=== PATIENT | male | born 1955 | race Caucasian/White ===

== ENCOUNTER 2018-06-08 15:19 | Observation (INO) ==
--- NOTE | 2018-06-08 16:51 | ED ---
HPI General Chief complaint: Fall Stated complaint: fall Time Seen by Provider: 06/08/18 19:34 Source: patient Mode of arrival: ambulatory Limitations: no limitations History of Present Illness HPI narrative: 63yo M with PMH of PVD, HTN, HLD, TIA/CVA, CAD s/p stent presents to the ED with c/o persistent headache and generalized weakness after a fall a week ago. Said he fell backwards, hit his head and was in [facility] for 4-5 days. Said they did many tests but he does not know the results and would like a second opinion so came to this hospital. Denies any fever, chest pain, visual changes, sob, n/v, focal weakness or numbness. Pt is tender on abdominal exam and said he has been having pain since he was [age] years old. Said he saw Dr. Alcazar 3 days ago and said he is suppose to wear a monitor to monitor electrical rhythm in his heart. Said he fell 2 more times and passed out. Pt is a poor historian. Related Data Home Medications Medication Instructions Recorded Confirmed Plavix 75 mg PO DAILY 06/08/18 06/09/18 aspirin 81 mg PO DAILY 06/08/18 06/09/18 lisinopril 20 mg PO DAILY 06/08/18 06/09/18 lovastatin 20 mg PO DAILY 06/08/18 06/09/18 meclizine 25 mg PO DAILY 06/08/18 06/09/18 oxycodone 10 mg PO QID PRN 06/08/18 06/09/18 diazepam 10 mg PO BID PRN 06/09/18 06/09/18 furosemide 20 mg PO DAILY 06/09/18 06/09/18 pantoprazole 40 mg PO DAILY 06/09/18 06/09/18 potassium chloride 20 meq PO DAILY 06/09/18 06/09/18 Allergies Allergy/AdvReac Type Severity Reaction Status Date / Time penicillin G Allergy Severe Hives Unverified 06/08/18 15:32 Review of Systems ROS: all other systems reviewed are negative [facility] Family History Family History Mother History of heart attack Father History of heart attack Brother History of heart attack Sister History of heart attack Social History Social History Substance History: No History of Abuse Second Hand Smoke Exposure: No Smoking Status: Current every day smoker Tobacco Type: Cigarettes Packs Per Day: 1 Cigarettes Per Day: 20.0 Years Smoked: 50 Pack-Years: 50.00 How Often Do You Have a Drink Containing Alcohol: Never Recent Travel in [place] within the Last 8 Weeks: No Recent Out of Country Travel within the Last 8 Weeks: No Exam Narrative Exam Narrative: GENERAL: 63yo M not in distress. SKIN: Focused skin assessment warm/dry. HEAD: Atraumatic. Normocephalic. EYES: Pupils equal and round. EOMI. ENT: No nasal bleeding or discharge. Mucous membranes pink and moist. NECK: No midline cervical spine ttp. CARDIOVASCULAR: Regular rate and rhythm. No murmur appreciated. RESPIRATORY: No accessory muscle use. Clear to auscultation. Breath sounds equal bilaterally. GASTROINTESTINAL: Abdomen soft, +TTP epigastric and RUQ. No rebound tenderness or guarding. BACK: +TTP sacrum. No ttp thoracic or lumbar. MUSCULOSKELETAL: No obvious deformities. No clubbing. No cyanosis. No edema. NEUROLOGICAL: Awake and alert. No obvious cranial nerve deficits. Motor grossly within normal limits in all extremities. Sensation intact. Normal speech. PSYCHIATRIC: Appropriate mood and affect; insight and judgment normal. Course Consultations Consultation #1: Spoke with [facility] nurse practitioner covering for Dr. Chopra. She will admit patient for observation of recurrent syncopal episodes and interrogation of implanted loop recorder. Time: 19:53 Initial Documented Vital Signs Temperature 98 F 06/08/18 15:32 Pulse Rate 70 06/08/18 15:32 Respiratory Rate 16 06/08/18 15:32 Blood Pressure 111/61 06/08/18 15:32 Pulse Oximetry 98 06/08/18 15:32 Last Documented Vital Signs Temperature 97.6 F 06/10/18 16:00 Pulse Rate 63 06/10/18 16:00 Respiratory Rate 18 06/10/18 16:00 Blood Pressure 169/87 H 06/10/18 16:00 Pulse Oximetry 95 06/10/18 16:00 Sign Out Sign Out Data: Patient Sign Out occurred on 06/08/18 at 19:34. Patient's care was discussed, and care was transferred from Samantha Santillan DO to Cullen Morin MD. Sign Out Comment: Sign out to next team since pt is still pending interrogation of loop recorder by [employer] and waiting for hospitalist to call back for observaton admission. Last updated by Samantha Santillan DO at 06/08/18 19:33 Medical Decision Making MDM Narrative Medical decision making narrative: 63yo M here stating he just has headache and sacral pain after falling a week ago. Said he was admitted in [facility] so will obtain records. Pt has not been to [place] for [address] Alcazar for further information as well since he saw him 3 days ago. I discussed with Dr. Ortiz and he said his gang investigator is Dr. Washington. It appears that pt was in [facility] for syncope work up in April and has a loop recorder. Said for some reason, they are not getting information of it and if concern, then we should interrogate it. Labs reviewed, no leukocytosis. H/H normal. BMP unremarkable. Lipase normal. UA showed rare bacteria. Culture not indicated. CT brain showed no acute hemorrhage or mass effect. CT a/p showed mild diverticulosis with no definite inflammatory change. Pt said he fell 2 more times this week and black out. He is a terrible historian. I have not gotten records from [facility] yet. He said he keeps falling and then blacking out. Sometimes his legs get weak. He lives by himself. Will admit for syncope work up and cardiology consult as well as PT evaluation. Pt may not be a safe discharge. Medical Screen Exam Complete: Yes Emergency Medical Condition: Yes Differential Diagnosis Differential Diagnosis: Electrolyte abnormality vs. contusion vs. arrhythmia Lab Data Result diagrams: 06/09/18 04:35 06/09/18 04:35 Lab Results 06/08/18 06/08/18 06/08/18 Range/Units 17:22 17:22 18:40 CBC w Diff Auto diff final WBC 6.2 (4.0-11.0) th/mm3 RBC 4.06 L (4.50-5.90) mil/mm3 Hgb 13.4 (13.0-17.0) gm/dL Hct 39.7 (39.0-51.0) % MCV 97.8 (80.0-100.0) fL MCH 33.0 (27.0-34.0) pg MCHC 33.7 (32.0-36.0) % RDW 13.6 (11.6-17.2) % Plt Count 284 (150-450) th/mm3 MPV 8.4 (7.0-11.0) fL Neut % (Auto) 59.7 (16.0-70.0) % Lymph % (Auto) 30.8 (9.0-44.0) % [place] % (Auto) 7.8 (0.0-8.0) % Eos % (Auto) 1.3 (0.0-4.0) % Baso % (Auto) 0.4 (0.0-2.0) % Neut # (Auto) 3.7 (1.8-7.7) th/mm3 Lymph # (Auto) 1.9 (1.0-4.8) th/mm3 [place] # (Auto) 0.5 (0.0-0.9) th/mm3 Eos # (Auto) 0.1 (0.0-0.4) th/mm3 Baso # (Auto) 0.0 (0.0-0.2) th/mm3 WBC Differential . Differential Comment . Sodium 139 (136-145) meq/L Potassium 3.9 (3.5-5.1) meq/L Chloride 106 (98-107) meq/L Carbon Dioxide 27.4 (21.0-32.0) meq/L Anion Gap 6 (5-15) meq/L BUN 6 L (7-18) mg/dL Creatinine 0.80 (0.60-1.30) mg/dL Estimated GFR Greater than 89 (>89) mL/min Random Glucose 93 (74-106) mg/dL Calcium 8.8 (8.5-10.1) mg/dL Magnesium 1.7 (1.5-2.5) mg/dL Total Bilirubin 0.3 (0.2-1.0) mg/dL AST 20 (15-37) U/L ALT 18 (12-78) U/L Alkaline Phosphatase 73 (45-117) U/L Total Protein 7.4 (6.4-8.2) g/dL Albumin 3.5 (3.4-5.0) g/dL Lipase 93 (73-393) U/L Urine Color Yellow (Yellw/Straw) Urine Clarity Clear (Clear) Urine pH 5.5 (5.0-8.5) Ur Specific [place] Less/equal 1.005 (1.002-1.035) Urine Protein Negative (Neg-Trace) mg/dL Urine Glucose (UA) Negative (Negative) mg/dL Urine Ketones Negative (Negative) mg/dL Urine Occult Blood Small H (Negative) Urine Nitrate Negative (Negative) Urine Bilirubin Negative (Negative) Urine Urobilinogen 0.2 (Less than 2) mg/dL Ur Leukocyte Esterase Negative (Negative) Urine RBC 0-3 (0-3) /hpf Urine Bacteria Rare H (None) /hpf Micro UA Comment Culture not ind Ur Microscopic Review Microscopic reviewed Urine Culture Comments Culture not ind Urine Opiates Screen (Neg) Ur Barbiturates Screen (Neg) Ur Amphetamines Screen (Neg) U Benzodiazepines Scrn (Neg) Urine Cocaine Screen (Neg) U Cannabinoids Screen (Neg) 06/09/18 06/09/18 06/09/18 Range/Units 04:35 04:35 08:50 CBC w Diff Auto diff final WBC 6.5 (4.0-11.0) th/mm3 RBC 3.85 L (4.50-5.90) mil/mm3 Hgb 13.3 (13.0-17.0) gm/dL Hct 38.7 L (39.0-51.0) % MCV 100.5 H (80.0-100.0) fL MCH 34.5 H (27.0-34.0) pg MCHC 34.3 (32.0-36.0) % RDW 13.2 (11.6-17.2) % Plt Count 246 (150-450) th/mm3 MPV 8.8 (7.0-11.0) fL Neut % (Auto) 42.1 (16.0-70.0) % Lymph % (Auto) 43.7 (9.0-44.0) % [place] % (Auto) 8.2 H (0.0-8.0) % Eos % (Auto) 3.9 (0.0-4.0) % Baso % (Auto) 2.1 H (0.0-2.0) % Neut # (Auto) 2.7 (1.8-7.7) th/mm3 Lymph # (Auto) 2.9 (1.0-4.8) th/mm3 [place] # (Auto) 0.5 (0.0-0.9) th/mm3 Eos # (Auto) 0.3 (0.0-0.4) th/mm3 Baso # (Auto) 0.1 (0.0-0.2) th/mm3 WBC Differential . Differential Comment . Sodium 142 (136-145) meq/L Potassium 3.7 (3.5-5.1) meq/L Chloride 107 (98-107) meq/L Carbon Dioxide 26.1 (21.0-32.0) meq/L Anion Gap 9 (5-15) meq/L BUN 7 (7-18) mg/dL Creatinine 0.69 (0.60-1.30) mg/dL Estimated GFR Greater than 89 (>89) mL/min Random Glucose 86 (74-106) mg/dL Calcium 8.7 (8.5-10.1) mg/dL Magnesium (1.5-2.5) mg/dL Total Bilirubin (0.2-1.0) mg/dL AST (15-37) U/L ALT (12-78) U/L Alkaline Phosphatase (45-117) U/L Total Protein (6.4-8.2) g/dL Albumin (3.4-5.0) g/dL Lipase (73-393) U/L Urine Color (Yellw/Straw) Urine Clarity (Clear) Urine pH (5.0-8.5) Ur Specific [place] (1.002-1.035) Urine Protein (Neg-Trace) mg/dL Urine Glucose (UA) (Negative) mg/dL Urine Ketones (Negative) mg/dL Urine Occult Blood (Negative) Urine Nitrate (Negative) Urine Bilirubin (Negative) Urine Urobilinogen (Less than 2) mg/dL Ur Leukocyte Esterase (Negative) Urine RBC (0-3) /hpf Urine Bacteria (None) /hpf Micro UA Comment Ur Microscopic Review Urine Culture Comments Urine Opiates Screen Pos H (Neg) Ur Barbiturates Screen Neg (Neg) Ur Amphetamines Screen Neg (Neg) U Benzodiazepines Scrn Pos H (Neg) Urine Cocaine Screen Neg (Neg) U Cannabinoids Screen Neg (Neg) Imaging Data Radiologist's impression: Abdomen/Pelvis CT 06/08/18 16:41 CONCLUSION: 1. Mild diverticulosis with no definite inflammatory change. 2. Mild hepatic steatosis. 3. Unremarkable gallbladder. 4. No visualized etiology to explain the patient's pain. Head CT 06/08/18 16:41 CONCLUSION: 1. No acute hemorrhage or mass effect. 2. Atrophy and extensive chronic small vessel ischemic change. 3. Old lacunar infarct in the left caudate nucleus. . ECG Data EKG Prior to Arrival: No Attestation: I personally reviewed and interpreted this ECG as follows: Interpretation: NSR 60bpm. MN interval 179ms. Normal axis. PVC. No ST segment elevation or depression. Discharge Plan Discharge Disposition Patient Disposition: 30 Still Patient Discharge Condition Condition: Stable Discharge Order Discharge Orders: AMA Discharge (Routine); Ordered 06/10/18 Ordered By: Monico Kapadia Discharge Details Diagnosis: Syncope Physicians Team ED Provider: Cullen Morin Primary Care Provider: Primary Care Shima,Billie Attending Provider: Monico Kapadia Other Providers: Didier Alcazar Status ED Status: Left Department Discharge Information Discharge Date/Time: 06/08/18 21:20
[2018-06-08 17:40] LABS: Chloride 106 meq/L (98-107); Potassium 3.9 meq/L (3.5-5.1); Sodium 139 meq/L (136-145)
[2018-06-08 17:43] LABS: Calcium 8.8 mg/dL (8.5-10.1)
[2018-06-08 17:44] LABS: Albumin 3.5 g/dL (3.4-5.0); Anion Gap 6 meq/L (5-15); Blood Urea Nitrogen 6 mg/dL (7-18); Carbon Dioxide 27.4 meq/L (21.0-32.0); Glucose,Random 93 mg/dL (74-106); Lipase 93 U/L (73-393); Magnesium 1.7 mg/dL (1.5-2.5)
[2018-06-08 17:45] LABS: Baso % (Auto) 0.4 % (0.0-2.0); Eos # (Auto) 0.1 th/mm3 (0.0-0.4); Eos % (Auto) 1.3 % (0.0-4.0); Hematocrit 39.7 % (39.0-51.0); Hemoglobin 13.4 gm/dL (13.0-17.0); Lymph # (Auto) 1.9 th/mm3 (1.0-4.8); Lymph % (Auto) 30.8 % (9.0-44.0); Mean Corpuscular HGB Conc 33.7 % (32.0-36.0); Mean Corpuscular Volume 97.8 fL (80.0-100.0); Mean Platelet Volume 8.4 fL (7.0-11.0); Mono # (Auto) 0.5 th/mm3 (0.0-0.9); Mono % (Auto) 7.8 % (0.0-8.0); Neut # (Auto) 3.7 th/mm3 (1.8-7.7); Neut % (Auto) 59.7 % (16.0-70.0); Platelet Count 284 th/mm3 (150-450); Red Blood Count 4.06 mil/mm3 (4.50-5.90); Red Cell Distribution Width 13.6 % (11.6-17.2); White Blood Count 6.2 th/mm3 (4.0-11.0)
[2018-06-08 17:47] LABS: Alanine Aminotransferase 18 U/L (12-78); Aspartate Aminotransferase 20 U/L (15-37); Glomerular Filtration Rate Greater Than 89 mL/min (>89)
[2018-06-08 17:49] LABS: Total Protein 7.4 g/dL (6.4-8.2)
[2018-06-08 17:50] LABS: Alkaline Phosphatase 73 U/L (45-117)
--- NOTE | 2018-06-08 18:37 | CT ---
EXAM DATE: 06/08/2018 6:30 PM EDT AGE/SEX: 63 years / Male INDICATIONS: Frequent fall. Occipital head pain. CLINICAL DATA: This is the patient's initial encounter. Patient reports that signs and symptoms have been present for 1 week and indicates a pain score of 3/10. MEDICAL/SURGICAL HISTORY: None. None. RADIATION DOSE: 54.78 CTDI (mGy) COMPARISON: No prior exams available for comparison. TECHNIQUE: CT of the head without contrast. Using automated exposure control and adjustment of the mA and/or kV according to patient size, radiation dose was kept as low as reasonably achievable to ob tain optimal diagnostic quality images. DICOM format image data is available electronically for revi ew and comparison. FINDINGS: Cerebrum: There is mild to moderate atrophic change with sulcal and ventricular prominence. Extensiv e periventricular white matter lucencies are noted most characteristic of chronic small vessel ischem ic change. There is an old lacunar infarct in the left caudate nucleus. No evidence of midline shift, mass lesion, hemorrhage or acute infarction. No extraaxial fluid collections are seen. Posterior Fossa: The cerebellum and brainstem are intact. The 4th ventricle is midline. The cerebe llopontine angle is unremarkable. Extracranial: The visualized portion of the orbits is intact. Skull: The calvaria is intact. No evidence of skull fracture. CONCLUSION: 1. No acute hemorrhage or mass effect. 2. Atrophy and extensive chronic small vessel ischemic change. 3. Old lacunar infarct in the left caudate nucleus. . Electronically signed by: Monico Harvey MD 06/08/2018 6:35 PM EDT
--- NOTE | 2018-06-08 18:38 | CT ---
EXAM DATE: 06/08/2018 6:29 PM EDT AGE/SEX: 63 years / Male INDICATIONS: Frequent fall. Mid abdominal pain. CLINICAL DATA: This is the patient's initial encounter. Patient reports that signs and symptoms have been present for 1 week and indicates a pain score of 3/10. MEDICAL/SURGICAL HISTORY: None. None. ORAL CONTRAST: No oral contrast ingested. RADIATION DOSE: 6.78 CTDI (mGy) COMPARISON: No prior exams available for comparison. TECHNIQUE: Multiple contiguous axial images were obtained through the abdomen and pelvis following b olus infusion of 95 ml Omnipaque 350 (iohexol) nonionic water-soluble contrast as a single exam dos e. No oral contrast ingested. Using automated exposure control and adjustment of the mA and/or kV ac cording to patient size, radiation dose was kept as low as reasonably achievable to obtain optimal di agnostic quality images. DICOM format image data is available electronically for review and comparis on. FINDINGS: Lower Lungs: The visualized lower lungs are clear. Liver: The liver has a homogeneous density without space-occupying lesion. There is no dilation of th e biliary tree. There is mild fatty infiltration of the liver. The gallbladder is unremarkable. Spleen: Homogeneous density without enlargement. Pancreas: Unremarkable without mass or calcification. Kidneys: Normal in size and shape. No evidence of mass or hydronephrosis. Adrenal Glands: Unremarkable. Aorta: The aorta and proximal iliac vessels are grossly unremarkable without aneurysmal dilation. Bowel/Mesentery: No oral contrast was given limiting the sensitivity exam. Diverticuli are present g reatest in the sigmoid colon with no focal inflammatory change or obstruction. The cecum and sigmoid colon have a normal configuration. Abdominal Wall: Intact. Retroperitoneum: No evidence of adenopathy in the retrocrural, para-aortic, or deep pelvic regions. Bladder: Contours are smooth. Reproductive Organs: No abnormal masses or calcifications seen. Inguinal: The inguinal region is unremarkable without evidence of adenopathy. Bony Structures: Unremarkable. CONCLUSION: 1. Mild diverticulosis with no definite inflammatory change. 2. Mild hepatic steatosis. 3. Unremarkable gallbladder. 4. No visualized etiology to explain the patient's pain. Electronically signed by: Monico Harvey MD 06/08/2018 6:37 PM EDT
[2018-06-08 18:43] LABS: Bilirubin,Urine Negative (Negative); Clarity,Urine Clear (Clear); Color,Urine Yellow (Yellw/Straw); Glucose,Urine (UA) Negative (Negative); Leukocyte Esterase,Urine Negative (Negative); Nitrite,Urine Negative (Negative); PH,Urine 5.5 (5.0-8.5); Specific Gravity,Urine Less/Equal 1.005 (1.002-1.035); Urobilinogen,Urine 0.2 mg/dL (Less than 2)
[2018-06-08 18:53] LABS: Bacteria,Urine Rare /hpf; RBC,Urine 0-3 /hpf (0-3)
[2018-06-08] MEDS ORDERED: oxyCODONE/Acetaminophen 10/325 Tablet PO ONE (22:23)
[2018-06-09 06:40] LABS: Baso # (Auto) 0.1 th/mm3 (0.0-0.2); Baso % (Auto) 2.1 % (0.0-2.0); Eos # (Auto) 0.3 th/mm3 (0.0-0.4); Eos % (Auto) 3.9 % (0.0-4.0); Hematocrit 38.7 % (39.0-51.0); Hemoglobin 13.3 gm/dL (13.0-17.0); Lymph # (Auto) 2.9 th/mm3 (1.0-4.8); Lymph % (Auto) 43.7 % (9.0-44.0); Mean Corpuscular HGB Conc 34.3 % (32.0-36.0); Mean Corpuscular Hemoglobin 34.5 pg (27.0-34.0); Mean Corpuscular Volume 100.5 fL (80.0-100.0); Mean Platelet Volume 8.8 fL (7.0-11.0); Mono # (Auto) 0.5 th/mm3 (0.0-0.9); Mono % (Auto) 8.2 % (0.0-8.0); Neut # (Auto) 2.7 th/mm3 (1.8-7.7); Neut % (Auto) 42.1 % (16.0-70.0); Platelet Count 246 th/mm3 (150-450); Red Blood Count 3.85 mil/mm3 (4.50-5.90); Red Cell Distribution Width 13.2 % (11.6-17.2); White Blood Count 6.5 th/mm3 (4.0-11.0)
[2018-06-09 06:47] LABS: Chloride 107 meq/L (98-107); Potassium 3.7 meq/L (3.5-5.1); Sodium 142 meq/L (136-145)
[2018-06-09 06:57] LABS: Anion Gap 9 meq/L (5-15); Calcium 8.7 mg/dL (8.5-10.1); Carbon Dioxide 26.1 meq/L (21.0-32.0)
[2018-06-09 06:58] LABS: Blood Urea Nitrogen 7 mg/dL (7-18); Glucose,Random 86 mg/dL (74-106)
[2018-06-09 07:01] LABS: Glomerular Filtration Rate Greater Than 89 mL/min (>89)
--- NOTE | 2018-06-09 09:24 | P.HP ---
History of Present Illness Primary Care Physician: No Primary Care Physician Chief Complaint: Syncope History of Present Illness: 63-year-old male with known history of hypertension, hyperlipidemia, coronary artery disease, history of CVA, who presented to the hospital for evaluation of syncope. Patient states that he has been experiencing near syncope, dizziness, syncopal episodes over the last 2-1/2 weeks. Patient states that really started when he went to open his house door, he dropped his keys and when he leaned over to the right nor the pick him up he stood back up had a dizziness sensation and had near syncopal episode where he fell to the ground. Patient would get back up from that position then he had a syncopal episode. Patient continued to have near syncopal episodes and then he went to [facility] recently was just discharged from there 3 days ago. During that visit he underwent full neurological, cardiovascular evaluation for recurrent syncope. Patient even had a loop recorder placement. Patient was discharged home and was to follow-up with a prisoner classification interviewer for management of the loop recorder. However since the patient has been home over the last 2 days had a 2 episode of syncope. He states that they are both from when he is sitting down on the couch and when he gets up quickly to go to the bathroom he usually has a syncopal episode on his way to the bathroom. Patient states that he does get urinary and bowel urgency and which makes him have to run to the bathroom. During those times is when he had his syncopal episode. Patient had workup done emergency department and is recommend the patient be observed in the hospital for further evaluation and management. Patient denies any loss or bowel control during the episodes of syncope. Patient does have bowel urgency in which he has bowel incontinence without syncopal episodes. He denies any headache, states he had blurred vision because a cataract in his left eye. Indicates that he has chronic left-sided weakness since his stroke. States that sometimes when he tries ambulate he feels like a marshmallow type sensation in his legs. - Diagnosis (1) Syncope Review of Systems All other systems reviewed negative except as stated in HPI Neurologic: Reports frequent falls, Reports weakness PMFSH - History History Provided By: Patient - Medical History Medical History: Medical History (Last Updated 06/09/18 @ 08:39 by ENRIKE Rowland) CVA (cerebral vascular accident) Coronary artery disease High cholesterol History of deviated nasal septum Hypertension - Surgical History Surgical History: Surgical History (Last Updated 06/09/18 @ 08:39 by ENRIKE Rowland) History of cardiac catheterization History of coronary artery stent placement History of endarterectomy - Family History Family History: Family History (Last Updated 06/09/18 @ 08:39 by ENRIKE Rowland) Mother History of heart attack Father History of heart attack Brother History of heart attack Sister History of heart attack - Tobacco History Second Hand Smoke Exposure: No Tobacco Use In Past 30 Days: Yes Smoking Status: Current every day smoker Tobacco Type: Cigarettes Packs Per Day: 1 Years Smoked: 50 - Alcohol History How Often Do You Have a Drink Containing Alcohol: Never - Substance Use History Substance History: No History of Abuse - Travel History Recent Travel in the [facility] Within the Last 8 Weeks: No Recent Travel Out of the Country Within the Last 8 Weeks: No - Immunization History Tetanus Immunization: <5 Years Hx Influenza Vaccine This Season: No Medications and Allergies Active Medications: Active Medications Acetaminophen (Tylenol) 650 mg PO Q4H PRN PRN Reason: Temp > 100.4 Ondansetron HCl (Zofran Inj) 4 mg IV.PUSH Q6H PRN PRN Reason: NAUSEA OR VOMITING Allergies Allergy/AdvReac Type Severity Reaction Status Date / Time penicillin G Allergy Severe Hives Unverified 06/08/18 15:32 Home Medications Medication Instructions Recorded Confirmed Type Plavix 06/08/18 History aspirin 06/08/18 History lisinopril 06/08/18 History lovastatin 06/08/18 History meclizine 06/08/18 History oxycodone 06/08/18 History Exam Vital signs: Vital Signs 06/08/18 15:32 06/08/18 17:15 06/08/18 18:00 Temperature 98 F Pulse Rate 70 77 74 Respiratory Rate 16 16 Blood Pressure 111/61 133/80 Pulse Oximetry 98 98 06/08/18 19:26 06/08/18 20:00 06/08/18 21:20 Temperature Pulse Rate 77 72 79 Respiratory Rate 16 16 16 Blood Pressure 146/83 H 115/72 122/83 Pulse Oximetry 98 98 98 06/08/18 21:52 06/09/18 00:00 06/09/18 04:00 Temperature 97 F L 96.7 F L 96.8 F L Pulse Rate 64 52 L 59 L Respiratory Rate 18 18 18 Blood Pressure 140/81 125/76 127/64 Pulse Oximetry 98 95 95 06/09/18 08:00 06/09/18 08:54 06/09/18 08:55 Temperature 97.0 F L Pulse Rate 87 Respiratory Rate 20 Blood Pressure 113/91 H 113/91 H 147/86 H Pulse Oximetry 95 06/09/18 08:56 Temperature Pulse Rate Respiratory Rate Blood Pressure 120/75 Pulse Oximetry Intake & Output 06/08/18 06/09/18 06/09/18 18:59 06:59 18:59 Intake Total 240 / 240 120 / 120 Output Total 700 / 700 Balance -460 / -460 120 / 120 Weight 69 kg 69.8 kg Intake: Oral 240 / 240 120 / 120 Output: Urine 700 / 700 Other: Weight On Admission 70.1 kg Narrative: GENERAL: Well-developed, well-nourished, in no acute distress. alert and orientated HEENT: Head is normocephalic without any lesions or masses noted. Facial features are symmetric. Eyes: Pupils equal round reactive to light. Extraocular muscles are intact. Conjunctivae were clear. Oropharyngeal: Pharynx without any erythema edema. Tongue is midline without deviation. Buccal mucosa is moist without any masses or lesions NECK: Supple without any masses. Trachea midline no deviation. No JVD, no bruits are appreciated CARDIAC: Regular rhythm, regular rate. S1/S2 are heard. No murmurs gallops or rubs. LUNGS: Clear to auscultation bilaterally. No wheeze, rhonchi or rales. No use of accessory muscles on inspiration or expiration. ABDOMEN: Soft, nontender. Nondistended. Bowel sounds heard in all 4 quadrants. No organomegaly or masses. Negative rebound, negative guarding EXTREMITIES: No edema, pulses are equal bilaterally. No cyanosis or clubbing NEUROLOGY: Mood and affect appear appropriate. Cranial nerves II through XII grossly intact. Muscle strength 5/5 in upper and lower extremities bilaterally. Deep tendon reflexes are 2+ in upper and lower extremities bilaterally. Results - Labs CBC & Chem 7: 06/09/18 04:35 06/09/18 04:35 Labs: Laboratory Results - last 24 hr 06/08/18 06/08/18 06/08/18 17:22 17:22 18:40 CBC w Diff Auto diff final WBC 6.2 RBC 4.06 L Hgb 13.4 Hct 39.7 MCV 97.8 MCH 33.0 MCHC 33.7 RDW 13.6 Plt Count 284 MPV 8.4 Neut % (Auto) 59.7 Lymph % (Auto) 30.8 Barrow % (Auto) 7.8 Eos % (Auto) 1.3 Baso % (Auto) 0.4 Neut # (Auto) 3.7 Lymph # (Auto) 1.9 Barrow # (Auto) 0.5 Eos # (Auto) 0.1 Baso # (Auto) 0.0 WBC Differential . Differential Comment . Sodium 139 Potassium 3.9 Chloride 106 Carbon Dioxide 27.4 Anion Gap 6 BUN 6 L Creatinine 0.80 Estimated GFR Greater than 89 Random Glucose 93 Calcium 8.8 Magnesium 1.7 Total Bilirubin 0.3 AST 20 ALT 18 Alkaline Phosphatase 73 Total Protein 7.4 Albumin 3.5 Lipase 93 Urine Color Yellow Urine Clarity Clear Urine pH 5.5 Ur Specific Edison Less/equal 1.005 Urine Protein Negative Urine Glucose (UA) Negative Urine Ketones Negative Urine Occult Blood Small H Urine Nitrate Negative Urine Bilirubin Negative Urine Urobilinogen 0.2 Ur Leukocyte Esterase Negative Urine RBC 0-3 Urine Bacteria Rare H Micro UA Comment Culture not ind Ur Microscopic Review Microscopic reviewed Urine Culture Comments Culture not ind 06/09/18 06/09/18 04:35 04:35 CBC w Diff Auto diff final WBC 6.5 RBC 3.85 L Hgb 13.3 Hct 38.7 L MCV 100.5 H MCH 34.5 H MCHC 34.3 RDW 13.2 Plt Count 246 MPV 8.8 Neut % (Auto) 42.1 Lymph % (Auto) 43.7 Barrow % (Auto) 8.2 H Eos % (Auto) 3.9 Baso % (Auto) 2.1 H Neut # (Auto) 2.7 Lymph # (Auto) 2.9 Barrow # (Auto) 0.5 Eos # (Auto) 0.3 Baso # (Auto) 0.1 WBC Differential . Differential Comment . Sodium 142 Potassium 3.7 Chloride 107 Carbon Dioxide 26.1 Anion Gap 9 BUN 7 Creatinine 0.69 Estimated GFR Greater than 89 Random Glucose 86 Calcium 8.7 Magnesium Total Bilirubin AST ALT Alkaline Phosphatase Total Protein Albumin Lipase Urine Color Urine Clarity Urine pH Ur Specific Edison Urine Protein Urine Glucose (UA) Urine Ketones Urine Occult Blood Urine Nitrate Urine Bilirubin Urine Urobilinogen Ur Leukocyte Esterase Urine RBC Urine Bacteria Micro UA Comment Ur Microscopic Review Urine Culture Comments - Imaging Impressions Abdomen/Pelvis CT 06/08/18 16:41 CONCLUSION: 1. Mild diverticulosis with no definite inflammatory change. 2. Mild hepatic steatosis. 3. Unremarkable gallbladder. 4. No visualized etiology to explain the patient's pain. Head CT 06/08/18 16:41 CONCLUSION: 1. No acute hemorrhage or mass effect. 2. Atrophy and extensive chronic small vessel ischemic change. 3. Old lacunar infarct in the left caudate nucleus. . Caprini VTE Risk Assessment Caprini VTE Risk Assessment: Moderate/High Risk (score >= 2) Caprini Risk Assessment Model: Point Value = 1 Point Value = 2 Point Value = 3 Point Value = 5 Age 41-60 Minor surgery BMI > 25 kg/m2 Swollen legs Varicose veins or History of unexplained or recurrent spontaneous Oral contraceptives or hormone replacement Sepsis (< 1 month) Serious lung disease, including pneumonia (< 1 month) Abnormal pulmonary function Acute myocardial infarction Congestive heart failure (< 1 month) History of inflammatory bowel disease Medical patient at bed rest Age 61-74 Arthroscopic surgery Major open surgery (> 45 min) Laparoscopic surgery (> 45 min) Malignancy Confined to bed (> 72 hours) Immobilizing plaster cast Central venous access Age >= 75 History of VTE Family history of VTE Factor V Leiden Prothrombin [id number] Lupus anticoagulant Anticardiolipin antibodies Elevated serum homocysteine Heparin-induced thrombocytopenia Other congenital or acquired thrombophilia Stroke (< 1 month) Elective arthroplasty Hip, pelvis, or leg fracture Acute spinal cord injury (< 1 month) Prophylaxis Regimen: Total Risk Factor Score Risk Level Prophylaxis Regimen 0-1 Low Early ambulation 2 Moderate Order ONE of the following: *Sequential Compression Device (SCD) *Heparin 5000 units SQ BID 3-4 Higher Order ONE of the following medications: *Heparin 5000 units SQ TID *Enoxaparin/Lovenox 40 mg SQ daily (WT < 150 kg, CrCl > 30 mL/min) *Enoxaparin/Lovenox 30 mg SQ daily (WT < 150 kg, CrCl > 10-29 mL/min) *Enoxaparin/Lovenox 30 mg SQ BID (WT < 150 kg, CrCl > 30 mL/min) AND/OR *Sequential Compression Device (SCD) 5 or more Highest Order ONE of the following medications: *Heparin 5000 units SQ TID (Preferred with Epidurals) *Enoxaparin/Lovenox 40 mg SQ daily (WT < 150 kg, CrCl > 30 mL/min) *Enoxaparin/Lovenox 30 mg SQ daily (WT < 150 kg, CrCl > 10-29 mL/min) *Enoxaparin/Lovenox 30 mg SQ BID (WT < 150 kg, CrCl > 30 mL/min) AND *Sequential Compression Device (SCD) Assessment and Plan - Assessment (1) Syncope Code(s): R55 - Syncope and collapse Status: Acute - Plan Syncope, recurrent -Due to the patient's presenting symptoms prior to syncope, sounds to be secondary to orthostasis -CT the brain does not indicate any acute abnormality -Patient just recently underwent full neurological/cardiovascular workup for syncope at [facility]. Currently do not have any of the records at this time. Unable to disposition treatment plan until records can be obtained Hypertension, hyper lipidemia, coronary disease -Home medications need to be confirmed, will continue them once that is complete DVT prevention -Sequential compression devices (1) Syncope Qualifiers: Encounter type: initial encounter
[2018-06-09] MEDS: Acetaminophen 325 MG Tablet PO PRN ×2 (09:57→18:20)
[2018-06-09 10:04] LABS: Amphetamine Screen,Urine Neg (Neg)
[2018-06-09 10:11] LABS: Barbiturate Screen,Urine Neg (Neg)
[2018-06-09 10:12] LABS: Cannabinoid Screen,Urine Neg (Neg); Cocaine Screen,Urine Neg (Neg)
[2018-06-09 10:16] LABS: Opiate Screen,Urine Pos (Neg)
--- NOTE | 2018-06-09 13:45 | ECG ---
Date Performed: 06/08/2018 Time Performed: 15:41:51 PTAGE: 63 years EKG: Sinus rhythm WITH FREQUENT VENTRICULAR PREMATURE COMPLEXES Compared to previous tracing ventricular ectopy is new ABNORMAL RHYTHM ECG PREVIOUS TRACING : 11/18/2007 06.14 DOCTOR: Ronald Uribe Interpretating Date/Time 06/09/2018 13:44:19
--- NOTE | 2018-06-09 14:06 | ECG ---
Date Performed: 06/08/2018 Time Performed: 16:44:24 PTAGE: 63 years EKG: Sinus rhythm WITH OCCASIONAL VENTRICULAR PREMATURE COMPLEXES BORDERLINE ECG Since the PREVIOUS TRACING , no significant change noted PREVIOUS TRACIN06/08/2018 15.41 DOCTOR: Ronald Uribe Interpretating Date/Time 06/09/2018 14:03:39
[2018-06-10 09:09] VITALS: RESP 18
--- NOTE | 2018-06-10 15:12 | P.PN ---
Subjective Interval history: 63-year-old male who is seen and examined today for follow-up on recurrent syncope. Patient denies any recurrent syncope during his hospitalization. Still have not received complete records from [facility]. Unable to make appropriate disposition on patient at this time. His vital signs have remained stable. Patient remains afebrile. Physical Exam Vital signs: Vital Signs 06/09/18 16:00 06/09/18 20:00 06/10/18 00:00 Temperature 97.5 F L 96.9 F L 97.4 F L Pulse Rate 51 L 64 61 Respiratory Rate 22 20 20 Blood Pressure 119/77 154/80 H 136/77 Pulse Oximetry 97 98 94 L 06/10/18 04:00 06/10/18 08:00 06/10/18 12:00 Temperature 97.3 F L 97.3 F L 96.8 F L Pulse Rate 64 58 L 60 Respiratory Rate 20 18 18 Blood Pressure 126/84 125/74 147/83 H Pulse Oximetry 97 96 100 Intake & Output 06/09/18 06/10/18 06/10/18 18:59 06:59 18:59 Intake Total 600 / 600 240 / 240 Output Total 201 / 201 550 / 550 Balance 399 / 399 -310 / -310 Weight 69.5 kg Intake: Oral 600 / 600 240 / 240 Output: Urine 200 / 200 550 / 550 Stool Other: Date of Last Bowel Movement 06/09/18 06/09/18 Narrative: GENERAL: Well-developed, well-nourished, in no acute distress. alert and orientated HEENT: Head is normocephalic without any lesions or masses noted. Facial features are symmetric. Eyes: Extraocular muscles are intact. Conjunctivae were clear. NECK: Supple without any masses. Trachea midline no deviation. No JVD, CARDIAC: Regular rhythm, regular rate. S1/S2 are heard. No murmurs gallops or rubs. LUNGS: Clear to auscultation bilaterally. No wheeze, rhonchi or rales. No use of accessory muscles on inspiration or expiration. ABDOMEN: Soft, nontender. Nondistended. Bowel sounds heard in all 4 quadrants. No organomegaly or masses. Negative rebound, negative guarding EXTREMITIES: No edema, pulses are equal bilaterally. No cyanosis or clubbing NEUROLOGY: Mood and affect appear appropriate. Cranial nerves II through XII grossly intact. Moving all extremities, speech is clear Results - Labs CBC & Chem 7: 06/09/18 04:35 06/09/18 04:35 Assessment and Plan - Assessment (1) Syncope Code(s): R55 - Syncope and collapse Status: Acute - Plan Syncope, recurrent -Due to the patient's presenting symptoms prior to syncope, sounds to be secondary to orthostasis -CT the brain does not indicate any acute abnormality -Sedating medication has been held to include oxycodone in light of the patient having continued falls with syncopal episode. Will need to monitor patient off medication to see if he has any recurrent syncope or fall. -Did review records from [facility] of his hospitalization on 05/23 until 05/25. At that time patient had a loop recorder placed. It was indicated by documentation of the patient underwent full neurological workup on 05/17/18, however [facility] did not send us those records to evaluate. During the patient's last hospitalization he did undergo cardiac evaluation with Dr. Washington, who put in a loop recorder. Patient did leave the hospital AGAINST MEDICAL ADVICE at that time. -We will reconsult Dr. Washington for possible cardiogenic syncope -Did request records for his visit on 05/17/18 that incorporated his neurological workup to see if there is any other testing that could be performed Hypertension, hyper lipidemia, coronary disease -Home medications need to be confirmed, will continue them once that is complete DVT prevention -Sequential compression devices (1) Syncope Qualifiers: Encounter type: initial encounter
[2018-06-10 17:07] VITALS: BP 169/87; PULSE 63; TEMP 97.6; O2SAT 95
--- NOTE | 2018-06-12 06:59 | P.DS ---
Date of admission: 06/08/18 19:52 Primary care physician: No Primary Care Physician Attending physician on discharge: Monico Kapadia Anticipated date of discharge: 06/10/18 Brief History from admission: 63-year-old male with known history of hypertension, hyperlipidemia, coronary artery disease, history of CVA, who presented to the hospital for evaluation of syncope. Patient states that he has been experiencing near syncope, dizziness, syncopal episodes over the last 2-1/2 weeks. Patient states that really started when he went to open his house door, he dropped his keys and when he leaned over to the right nor the pick him up he stood back up had a dizziness sensation and had near syncopal episode where he fell to the ground. Patient would get back up from that position then he had a syncopal episode. Patient continued to have near syncopal episodes and then he went to [facility] recently was just discharged from there 3 days ago. During that visit he underwent full neurological, cardiovascular evaluation for recurrent syncope. Patient even had a loop recorder placement. Patient was discharged home and was to follow-up with a armhole feller handstitching machine for management of the loop recorder. However since the patient has been home over the last 2 days had a 2 episode of syncope. He states that they are both from when he is sitting down on the couch and when he gets up quickly to go to the bathroom he usually has a syncopal episode on his way to the bathroom. Patient states that he does get urinary and bowel urgency and which makes him have to run to the bathroom. During those times is when he had his syncopal episode. Patient had workup done emergency department and is recommend the patient be observed in the hospital for further evaluation and management. Patient denies any loss or bowel control during the episodes of syncope. Patient does have bowel urgency in which he has bowel incontinence without syncopal episodes. He denies any headache, states he had blurred vision because a cataract in his left eye. Indicates that he has chronic left-sided weakness since his stroke. States that sometimes when he tries ambulate he feels like a marshmallow type sensation in his legs. DS: Diagnosis - Discharge Diagnosis (1) Syncope Status: Acute DS: Summary Hospital Course: 63-year-old male who originally presented to the hospital for evaluation of recurrent falls and syncope at home. Patient has a rather extensive history of the previously stated symptoms. He is been to [facility] on multiple occasions and has been admitted multiple times. The patient did not go back to [facility] at this time because a friend told him to go to [place] instead. Patient has had previous admissions at [facility] with full neurological that was done on 05/17/18. The patient did not indicate that there was any acute abnormality. Patient did return back to [facility] on 05/23/18 for reevaluation because of recurrent syncope. At that time patient had a loop recorder placed by Dr. Washington. Patient then left the hospital AMA, because he states that he had a blood test done and no and would tell him the results. Upon admission to [facility] request was made to [facility] for records for complete evaluation. Unfortunately he only received the visit for 05/23/18 in which he had the loop recorder placed and he signed out AMA. Requested again records from her previous admission to evaluate his full neurological workup to see if there is any other testing that could be performed here at the hospital that has not already been done at [facility]. At that time records still have not been sent. Cardiology consult was requested for evaluation of the patient's syncope, possible cardiogenic syncope. During the patient's hospitalization he did undergo CT scan of the brain which was unremarkable. All sedating medications were held to include oxycodone to see if he would have any recurrent syncope or fall during his stay in the hospital. During the patient's stay he did not have any recurrent syncope or fall. We were still awaiting records from [facility], cardiology consult. However patient left AGAINST MEDICAL ADVICE. - Time Spent with Patient Total time spent providing and/or coordinating discharge services: Less than 30 minutes - Quality: VTE Deep Vein Thrombosis/Pulmonary Embolism Present on Admission: No Results Procedures completed during hospitalization: Loop recorder interrogation which did not indicate any acute episodes - Impressions ITS Impressions Abdomen/Pelvis CT 06/08/18 16:41 CONCLUSION: 1. Mild diverticulosis with no definite inflammatory change. 2. Mild hepatic steatosis. 3. Unremarkable gallbladder. 4. No visualized etiology to explain the patient's pain. Head CT 06/08/18 16:41 CONCLUSION: 1. No acute hemorrhage or mass effect. 2. Atrophy and extensive chronic small vessel ischemic change. 3. Old lacunar infarct in the left caudate nucleus. . Discharge Plan - Discharge Disposition Patient Disposition: 07 Against Medical Advice - Discharge Condition Condition: Stable - Discharge Order Discharge Orders: AMA Discharge (Routine); Ordered 06/10/18 Ordered By: Monico Kapadia - Physicians Team Primary Care Provider: Primary Care Billie Ronquillo Attending Provider: Monico Kapadia Other Providers: Didier Alcazar MD
== END 2018-06-10 19:36 | disposition left against medical advice (07) ==
LOC: PHEDA 15:19 → PHED 15:19 → PHEDA 21:20 → PH3 21:44
PROVIDERS: ADMIT Hospitalist; ATTEND Hospitalist
DX: E78.5 Hyperlipidemia, unspecified; F17.210 Nicotine dependence, cigarettes, uncomplicated; Z79.02 Long term (current) use of antithrombotics/antiplatelets; I25.10 Atherosclerotic heart disease of native coronary artery without angina pectoris; R29.6 Repeated falls; I10 Essential (primary) hypertension; Z79.82 Long term (current) use of aspirin; R55 Syncope and collapse; W19.XXXA Unspecified fall, initial encounter; K76.0 Fatty (change of) liver, not elsewhere classified; Z95.5 Presence of coronary angioplasty implant and graft; E78.00 Pure hypercholesterolemia, unspecified; Z88.0 Allergy status to penicillin; Z82.49 Family history of ischemic heart disease and other diseases of the circulatory system; R51 Headache; I73.9 Peripheral vascular disease, unspecified; K57.90 Diverticulosis of intestine, part unspecified, without perforation or abscess without bleeding; Z86.73 Personal history of transient ischemic attack (TIA), and cerebral infarction without residual deficits